=== PATIENT | female | born 1985 | race Caucasian/White ===

== ENCOUNTER → 2019-09-04 | Outpatient (CLI) | payer OTHER ==
--- NOTE | 2019-09-04 09:04 | REP ---
CT LEFT KNEE: Axial CT images performed of the left knee with sagittal and coronal reconstruction images. Metallic plate is seen along the medial cortex of the proximal tibia, affixed by multiple metallic screws. There is no acute fracture or dislocation. No abnormal lucency is seen surrounding the metallic screws. There is moderate medial joint space narrowing. There is mild lateral joint space narrowing. The joint surface of the medial tibial plateau is irregular but intact. There is also mild irregularity of the joint surface of the medial femoral condyle. Oval calcific body is seen along the anterior tibial plateau in the midline measuring approximately 7 x 4 mm. Posteriorly within the joint, slightly medial to midline, there is a tiny calcific body measuring 2 mm. Another 2 mm calcific body is seen in the joint just lateral to the midline, centrally. Anterior to that, there is an oval calcific body measuring about 5 x 3 mm. In the anteromedial joint recess, there is a calcific body measuring approximately 3 mm. There is a small joint effusion. Otherwise, the soft tissue structures appear unremarkable. IMPRESSION: Healed fracture, proximal tibia with metallic internal fixation. No acute fracture or dislocation. 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 Multiple small calcific bodies in and around the joint. Electronically Signed by Nikunj Holman MD 09/04/2019 11:23 P
== END ==
LOC: M RAD 06:51
DX: M17.12 Unilateral primary osteoarthritis, left knee (principal)